=== PATIENT | male | born 1960 | race Caucasian/White ===

== ENCOUNTER → 2019-05-23 | Outpatient (CLI) | payer BC ==
[~2019-05-23] MED LIST: CONTRAST GIVEN. MC PRN; IOHEXOL 300 MG/ML 100ML VIAL. IV ONE; SIMV5TAB14 PO
--- NOTE | 2019-05-23 16:45 | KCIC ---
CT study of abdomen and pelvis with and without contrast-CT urogram Clinical indications: Kidney stone. Urinary tract infections. COMPARISON: January 31, 2019. TECHNIQUE:: Noncontrast helical CT scanning of the abdomen and pelvis was performed. Following IV infusion of 100 cc of Omnipaque 300, repeat helical CT scanning of the abdomen and pelvis was performed using the CT urogram protocol. No GI contrast was administered. This may decrease the sensitivity to detect GI tract pathology. PQRS compliance Statement One or more of the following individualized dose reduction techniques were utilized for this study: 1. Automated exposure control 2. Adjustment of the mA and/or kV according to patient size 3. Use of iterative reconstruction technique FINDINGS: Small punctate stone of the lower pole of the right kidney is seen. No hydronephrosis or hydroureter or ureteral stone is seen on either side. Previously seen wall thickening of the proximal right ureter is not evident today consistent with resolution of inflammation. No filling defect of the upper right urinary tract is seen. There is incomplete opacification of the distal left ureter. Urinary bladder wall is smooth and no filling defect is seen within the urinary bladder. No renal mass or perinephric fluid or inflammation is seen. Again seen is a small lipoma of the right lobe of the liver. Spleen is not enlarged. No pancreatic mass is seen. Gallbladder is small. No extrahepatic biliary ductal dilatation is seen. No adrenal mass is evident. No focal aneurysmal dilatation of the abdominal aorta is seen. No enlarged abdominal or pelvic lymphadenopathy is evident. No free intraperitoneal air or free fluid or mesenteric edema is evident. The appendix is normal. Calcified granuloma of the posterior right lung base is seen. No lytic process is seen. IMPRESSION: Only one small punctate stone is seen within the lower pole of the right kidney today. The other larger stone seen previously has either dissolved or has been passed in the interim. No hydronephrosis or hydroureter or ureteral stone is seen today. The previously seen proximal right ureteral wall thickening has resolved consistent with resolution of ureteritis. No new abnormality is seen today. Electronically signed by: Dae Cruz MD (05/23/2019 4:42 PM) [facility]
== END | disposition home or self-care (01) ==
LOC: KCIC CT 08:56
PROVIDERS: ATTEND Family Medicine
DX: N20.0 Calculus of kidney (principal)
CPT/HCPCS: 74178; Q9967

== ENCOUNTER → 2020-08-13 | Outpatient (CLI) | payer BC ==
[~2020-08-13] MED LIST changes: -CONTRAST GIVEN. MC PRN; -IOHEXOL 300 MG/ML 100ML VIAL. IV ONE
--- NOTE | 2020-08-13 11:09 | KCIC ---
EXAM: Bilateral hands, 3 views. HISTORY: Pain. COMPARISON: None. FINDINGS: 3 views of both hands are obtained. There is no fracture, dislocation or subluxation. The a lignment and joint spaces are unremarkable. There is minimal spurring involving the left second throu gh fifth distal interphalangeal joints. There is a tiny calcification along the distal ulnar aspect o f the fifth proximal phalanx. IMPRESSION: No acute osseous finding. Electronically signed by: Kathleen Hernández MD (08/13/2020 11:07 AM) [id number]
== END ==
LOC: KCIC 10:35
PROVIDERS: ATTEND Family Medicine
DX: M77.8 Other enthesopathies, not elsewhere classified (principal); M79.641 Pain in right hand; M79.642 Pain in left hand
CPT/HCPCS: 73130-50

== ENCOUNTER → 2020-10-22 | Outpatient (CLI) | payer BC ==
--- NOTE | 2020-10-22 13:15 | KCIC ---
EXAM: Chest, 2 views. HISTORY: Interstitial lung disease. COMPARISON: None. FINDINGS: 2 views of the chest are obtained. There is no infiltrate, pleural effusion or pneumothorax . The heart is normal in size. There are small calcified granulomas. IMPRESSION: No acute pulmonary finding. Electronically signed by: Kathleen Hernández MD (10/22/2020 1:13 PM) [id number]
--- NOTE | 2020-10-22 13:34 | KCIC ---
Study: XR FOOT_LEFT 3 VIEWS Indication: Left foot pain. Mid foot bony abnormality. Comparison: None. Findings: Degenerative spurring along the dorsum of the midfoot most pronounced at the naviculocuneiform joint. No more than mild scattered forefoot arthrosis. Degenerative spurring along the tibial plafond and a t the tips of the medial and lateral malleoli. Plantar calcaneal spur and chronic osseous remodeling at the Achilles insertion. Rafia deformity. Small chronic focus of ossification above the calcaneus projecting ventral to the Achilles. There may be thickening of the distal Achilles. Impression: 1. Degenerative spurring along the dorsum of the midfoot greatest at the naviculocuneiform joint whic h could account for the patient's reported midfoot bony abnormality. 2. 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 Recommend correlation for distal Edward s tendinosis. Electronically signed by: TERESA ALBERT MD (10/22/2020 1:31 PM) [id number]
== END ==
LOC: KCIC 11:37
PROVIDERS: ATTEND Family Medicine
DX: M77.32 Calcaneal spur, left foot (principal); M21.6X2 Other acquired deformities of left foot; J84.10 Pulmonary fibrosis, unspecified
CPT/HCPCS: 71046; 73630